=== PATIENT | female | born 1940 | race Caucasian/White ===

== ENCOUNTER → 2017-09-14 | Outpatient (CLI) | payer OTHER ==
[~2017-09-14] MED LIST: AMLO5TAB22 PO; FURO20 PO; GLUC500C56 PO; IRONCAP2 PO; LEFL20 PO; LOSA50TA PO; METO100T9 PO; OMEG1CAP53 PO; PRAV20 PO
--- NOTE | 2017-09-15 08:03 | RADRPT ---
EXAM DATE/TIME: 09/14/2017 12:10 [facility] COMPARISON : No previous studies available for comparison. INDICATIONS : Evaluate for possible RIGHT kidney biopsy and cryo-ablation HISTORY OF PRESENT ILLNESS: The patient is a 77-year-old who underwent MRI imaging dated 08/28/17. This demonstrated a 2.1 x 1.6 cm heterogeneously enhancing mass arising the upper pole of the right kidney. This lesion is concerni ng for renal cell carcinoma. IMAGING STUDIES: MRI dated 08/28/17 demonstrates a 2.1 x 1.6 cm enhancing mass in the upper pole the right kidney conc erning for malignancy. ASSESSMENT: Suspicious mass arising from the upper pole the right kidney. This lesion is a location which is amen able to cryoablation for treatment. PLAN: The patient will be scheduled for consultation and cryoablation of the right upper pole mass. TIME SPENT: 15 minutes. Salvador Swift MD on September 15, 2017 at 7:57 Board Certified Radiologist. This report was verified electronically.
== END ==
LOC: HRAD 11:38
PROVIDERS: ATTEND Internal Medicine Hematology & Oncology
DX: N28.89 Other specified disorders of kidney and ureter (principal)

== ENCOUNTER 2017-09-28 13:30 | Day surgery (SDC) | payer OTHER ==
--- NOTE | 2017-09-28 16:11 | RADRPT ---
EXAM DATE/TIME: 09/28/2017 00:00 [facility] COMPARISON : INDICATIONS : Cryoabaltion right kidney OBJECTIVE: Temperature: 98.5 Heart Rate: 66 Blood Pressure: 152/83 Respiratory: 18 Oximetry: 97 PNEUMONIA VACCINE: HISTORY OF PRESENT ILLNESS: The patient is a pleasant 69-year-old who has had several previous MRI scans to evaluate a mass along the posterior aspect of the right kidney. The most recent scan demonstrated increased in size of the mass. Now measures 1.7 x 2.2 cm. The lesion is suspicious for renal cell carcinoma. PAST MEDICAL HISTORY : Hypertension. Hypercholesterolemia. Carcinoma, breast. PAST SURGICAL HISTORY : Appendectomy. Gallbladder Knee surgery R Carpal Tunnel Tonsilectomy Radiation SOCIAL HISTORY : No alcohol use. Tobacco;none. Ampillicin Doyazosin 4 mg q.d. Hydrochlorothiazide 12.5 mg q.d. Leflunomide 20 mg q.d. Losartan Potassium 100 mg q.d. Metoprolol 50 mg q.d. Omeprazole 20 mg q.d. PHYSICAL EXAMINATION: Limited physical examination was performed. The patient is a mildly obese 77-year-old white female ot [facility] in good health. IMAGING STUDIES: The patient's MRI performed appendix imaging was reviewed. This confirmed an enhancing mass measuring approximately 2 cm arising from the posterior aspect of the right kidney. ASSESSMENT: The lesion is in an excellent location for cryoablation. PLAN: The patient will be scheduled for biopsy and treatment of the right renal mass. TIME SPENT: 30 minutes. Salvador Swift MD on September 28, 2017 at 16:06 Board Certified Radiologist. This report was verified electronically.
[2017-09-29] MEDS ORDERED: LEFL1TAB3 PO (08:34)
[2017-09-29] MEDS ORDERED: DOXA4TAB3 PO (08:34)
[2017-09-29] MEDS ORDERED: OMEP20TA93 PO (08:34)
[2017-09-29] MEDS ORDERED: LOSA100T PO (08:34)
[2017-09-29] MEDS ORDERED: METO1TAB9 PO (08:34)
[2017-09-29] MEDS ORDERED: HYDR12.57 PO (08:34)
== END 2017-09-28 15:10 | disposition home or self-care (01) ==
LOC: HROP 13:30 → HRIP 13:31 → HROP 15:10
PROVIDERS: ATTEND Internal Medicine Hematology & Oncology
DX: N28.89 Other specified disorders of kidney and ureter (principal); I10 Essential (primary) hypertension; E78.00 Pure hypercholesterolemia, unspecified; Z85.3 Personal history of malignant neoplasm of breast
CPT/HCPCS: 99213; G0463

== ENCOUNTER 2017-09-29 08:09 | Day surgery (SDC) | payer OTHER ==
[~2017-09-29] VITALS: Ht 152.4 cm; Wt 90.9 kg
[2017-09-29 08:27] VITALS: BP 174/101; PULSE 67; RESP 20; TEMP 97.8; O2SAT 97
[2017-09-29] MEDS ORDERED: LOSA100T PO (08:34)
[2017-09-29] MEDS ORDERED: METO1TAB9 PO (08:34)
[2017-09-29] MEDS ORDERED: HYDR12.57 PO (08:34)
[2017-09-29] MEDS ORDERED: LEFL1TAB3 PO (08:34)
[2017-09-29] MEDS ORDERED: DOXA4TAB3 PO (08:34)
[2017-09-29] MEDS ORDERED: OMEP20TA93 PO (08:34)
[2017-09-29] MEDS ORDERED: SODIUM CHLORID 0.9% 500 ML IV PRN (08:45)
[2017-09-29] MEDS ORDERED: LEVOFLOXACIN 500 MG PREMIX INJ 100 ML IV SCH (08:45)
[2017-09-29] MEDS ORDERED: LACTATED RINGER'S 1000 ML IV PRN (08:45)
[2017-09-29] MEDS ORDERED: SODIUM CHLOR 0.9% 1000 ML INJ 1,000 ML IV SCH (09:00)
[2017-09-29 09:08] LABS: AUTOMATED NEUTROPHIL # 2.8 TH/MM3 (1.8-7.7); BASOPHIL % 0.6 % (0.0-2.0); EOSINOPHIL # 0.1 TH/MM3 (0-0.4); EOSINOPHIL % 1.5 % (0.0-4.0); HEMATOCRIT 34.4 % (35.0-46.0); HEMO FLAGS DIFF FINAL; MEAN CELL VOLUME 92.1 FL (80.0-100.0); MEAN CORPUSCULAR HEMOGLOBIN 31.5 PG (27.0-34.0); MEAN CORPUSCULAR HGB CONC 34.2 % (32.0-36.0); MONO % 9.2 % (0.0-8.0); NEUT % 64.7 % (16.0-70.0); PLATELET COUNT 153 TH/MM3 (150-450); RED BLOOD COUNT 3.73 MIL/MM3 (4.00-5.30); RED CELL DISTRIBUTION WIDTH 14.3 % (11.6-17.2); WHITE BLOOD COUNT 4.3 TH/MM3 (4.0-11.0)
[2017-09-29 09:12] LABS: APTT (PATIENT) 26.5 SEC (24.3-30.1); PROTHROMBIN TIME - PATIENT 10.5 SEC (9.8-11.6)
[2017-09-29 09:19] LABS: BICARBONATE 23.6 MEQ/L (21.0-32.0); POTASSIUM 3.7 MEQ/L (3.5-5.1)
[2017-09-29] MEDS ORDERED: LIDOCAINE 1%/EPINEPHrine 1:100,000 SOLN 20 ML VIAL ONE (10:49)
--- NOTE | 2017-09-29 13:17 | PD.RAD ---
Post Procedure Progress Note Pre Procedure Diagnosis: (1) Renal mass, right Post Procedure Diagnosis: (1) Renal mass, right Procedure Date: Sep 29, 2017 Supervising Radiologist: Salvador Swift Estimated blood loss: 1cc Plan of Activity Patient to Unit: PACU Patient Condition: Good Additional Comments: Pt. post right renal mass cryoablation Pt tolerated the procedure well Full dictated report to follow See PACS Report for procedural detail/treatment Salvador Swift MD Sep 29, 2017 13:17
[2017-09-29] MEDS ORDERED: *ONDANSETRON 4 MG VIAL PERIprocedural Use ONLY ONE (14:41)
[2017-09-29 14:49] VITALS: BP 127/57; PULSE 65; RESP 18; TEMP 97.8; O2SAT 94
--- NOTE | 2017-09-29 15:15 | RADRPT ---
EXAM DATE/TIME: 09/29/2017 12:07 INDICATIONS : Right renal mass. Anesthesia and pain control was provided by the Anesthesia department. Prophylactic antibiotics were administered with appropriate pre-procedure timing. Vancomycin within 2 hrs of procedure, Ancef (or alternative) within 1 hr of procedure start. Intra-procedural antibiotics were given as prescribed above. DEVICE(S): 1.) Cryoablation probe 14 Gauge MEDICAL HISTORY : Gastroesophageal reflux disease. Pancreatitis. Carcinoma, breast. Hypertension. SURGICAL HISTORY : Appendectomy. Cholecystectomy. Hysterectomy. ENCOUNTER: Initial ACUITY: 1 day PAIN SCORE: 0/10 LOCATION: Right renal PROCEDURE : 1. CT guided cryoablation. Under sterile conditions and using aseptic technique with CT guidance the mass was localized and sati sfactory approach was taken to access the lesion. 50 cc of intravenous contrast was given to help loc anabela the mass. Using automated exposure control and adjustment of the mA and/or kV according to pat ient size, radiation dose was kept as low as reasonably achievable to obtain optimal diagnostic quali ty images. DICOM format image data is available electronically for review and comparison. A [employer] Cryoprobe was employed using percutaneous technique employing the prescribed probes. A freeze-thaw, freeze-thaw technique was employed and serial imaging demonstrated an ice ball encomp assing the entire lesion. Post procedure images demonstrate expected postoperative changes without e vidence of hematoma. CONCLUSION: Uncomplicated cryoablation as above. Salvador Swift MD on September 29, 2017 at 15:07 Board Certified Radiologist. This report was verified electronically.
--- NOTE | 2017-09-29 15:46 | RADRPT ---
EXAM DATE/TIME: 09/29/2017 12:07 [facility] COMPARISON: CT FACIAL BONES W/O CONTRAST, August 07, 2015, 15:02. INDICATIONS : Right renal mass. BIOPSY SITE: Right renal DEVICE(S): 1.) 18 gauge Temno core biopsy needle MEDICAL HISTORY : Gastroesophageal reflux disease. Pancreatitis. Carcinoma, breast. Hypertension. SURGICAL HISTORY : Appendectomy. Cholecystectomy. Hysterectomy. ENCOUNTER: Initial ACUITY: 1 day PAIN SCORE: 0/10 LOCATION: Right renal A total of one core specimen(s) were obtained and sent to the laboratory for pathologic evaluation. PROCEDURE: 1. CT guided renal biopsy. 2. Conscious sedation with continuous EKG and oximetry monitoring. 3. EKG and oximetry remained stable throughout the procedure. Prior to the procedure informed consent was obtained. Any appropriate prior imaging studies were rev iewed. Using automated exposure control and adjustment of the mA and/or kV according to patient size, radiat ion dose was kept as low as reasonably achievable to obtain optimal diagnostic quality images. DICOM format image data is available electronically for review and comparison. The site was prepped in a sterile fashion. Full sterile technique was used, including cap, mask, carina rile gloves and gown and a large sterile sheet. Hand hygiene and 2% chlorhexidine and/or betadine/al cohol prep was utilized per protocol for cutaneous antisepsis. The skin and subcutaneous tissues wer e infiltrated with local anesthetic solution. With CT guidance the previously identified target was localized. Biopsy was performed using the presc ribed needle as above. Adequate hemostasis was obtained with compression at the puncture site. Follow-up CT scan reveals no hemorrhage. The patient tolerated the procedure well and there were no complications. The patient was returned to the Radiology Outpatient Unit in stable condition. CONCLUSION: Uncomplicated CT guided biopsy of the patient's right renal mass. Salvador Swift MD on September 29, 2017 at 15:44 Board Certified Radiologist. This report was verified electronically.
[2017-09-29 16:03] VITALS: BP 139/60; PULSE 68; RESP 18; O2SAT 96
[2017-09-29] MEDS ORDERED: DO NOT ADM ANY ANTICOAGULANT DRUGS PRN (16:15)
[2017-09-29] MEDS ORDERED: PROMETHAZINE INJ 25 MG/ML VIAL IM ONE (16:15)
[2017-09-29 17:15] VITALS: BP 107/57; PULSE 76; RESP 18; O2SAT 97
--- NOTE | 2017-09-29 19:34 | EKG ---
Date Performed: 09/29/2017 Time Performed: 08:49:01 PTAGE: 77 years EKG: Sinus rhythm WITH atrial premature beat. LOW QRS VOLTAGE When compared to previous tracing, the atrial premature beat is New. ABNORMAL ECG PREVIOUS TRACING : 08/04/2006 10.33 DOCTOR: Baldev Rao Interpretating Date/Time 09/29/2017 19:32:35
== END 2017-09-29 17:45 | disposition home or self-care (01) ==
LOC: HROP 08:09 → HRIP 08:15 → HROP 17:45
PROVIDERS: ATTEND Internal Medicine Hematology & Oncology
DX: C64.1 Malignant neoplasm of right kidney, except renal pelvis (principal); K86.1 Other chronic pancreatitis; K21.9 Gastro-esophageal reflux disease without esophagitis; I10 Essential (primary) hypertension; Z85.3 Personal history of malignant neoplasm of breast; Z01.818 Encounter for other preprocedural examination; Z01.810 Encounter for preprocedural cardiovascular examination
CPT/HCPCS: 50200; 50593; 77012; 77013; 80048; 85025; 85610; 85730; 88305; 93005; C2618; J2405; J2550

== ENCOUNTER 2017-10-06 13:39 | Day surgery (SDC) | payer OTHER ==
[~2017-10-06 13:39] MED LIST changes: -AMLO5TAB22 PO; +DOXA4TAB3 PO; -FURO20 PO; -GLUC500C56 PO; +HYDR12.57 PO; -IRONCAP2 PO; +LEFL1TAB3 PO; -LEFL20 PO; +LOSA100T PO; -LOSA50TA PO; -METO100T9 PO; +METO1TAB9 PO; -OMEG1CAP53 PO; +OMEP20TA93 PO; -PRAV20 PO
[2017-10-06 14:04] VITALS: BP 151/76; PULSE 87; RESP 20; TEMP 98.3; O2SAT 99
--- NOTE | 2017-10-07 08:57 | RADRPT ---
EXAM DATE/TIME: 10/06/2017 14:01 [facility] COMPARISON : INDICATIONS : FOLLOW UP RENAL MASS CRYOABLATION OBJECTIVE: Temperature: 98.3 Heart Rate: 87 Blood Pressure: 151/76 Respiratory: 20 Oximetry: 99 HISTORY OF PRESENT ILLNESS: 77-year-old post right renal mass biopsy and cryoablation. Biopsy-proven clear cell renal cell carcin nila. PHYSICAL EXAMINATION: Patient alert and oriented in no acute distress IMAGING STUDIES: Procedural images were reviewed. Findings discussed with patient and her ASSESSMENT: Patient appears to be doing well post cryoablation and right renal biopsy. Patient had some questions about the efficacy of the procedure and have we note for certain that the tumor is completely ablate d. I assured her that there is no way to determine for certain date if the tumor is completely ablate d at this point but the initial images look favorable. I also discussed the followup imaging in 3-6 months. PLAN: Followup cross-sectional imaging in 3-6 months. TIME SPENT: 10 minutes Abhi Blunt MD on October 07, 2017 at 8:49 Board Certified Radiologist. This report was verified electronically.
== END 2017-10-06 15:00 | disposition home or self-care (01) ==
LOC: HROP 13:39 → HRIP 13:39 → HROP 15:00
PROVIDERS: ATTEND Radiology Body Imaging
DX: Z08 Encounter for follow-up examination after completed treatment for malignant neoplasm (principal); C64.9 Malignant neoplasm of unspecified kidney, except renal pelvis
CPT/HCPCS: 99212; G0463

== ENCOUNTER 2018-04-02 18:41 | Emergency (ER) | payer OTHER ==
[~2018-04-02] VITALS: Ht 152.4 cm; Wt 90.5 kg
[2018-04-02 18:54] VITALS: BP 194/86; PULSE 67; RESP 20; TEMP 97.6; O2SAT 99
--- NOTE | 2018-04-02 21:18 | PD ---
HPI Chief Complaint: GI Complaint Time Seen by Provider: 21:09 (Kajal Bower) Time Seen by Provider: 21:09 (Keyon Chatterjee DO) Travel History International Travel<30 days: No Contact w/Intl Traveler<30days: No Traveled to known affect area: No (Kajal Bower) History of Present Illness HPI 78-year-old female with history of hypertension, remote history of breast cancer , presents emergency department today for evaluation of nausea and vomiting throughout the day. Patient states she has been unable to keep anything down. She denies any significant abdominal pain. She reports no diarrhea. She has had no fever or chills. She has noticed a decrease in her urine output throughout the day because she states she is unable to keep anything down. Patient denies any hematemesis. She has history of cholecystectomy and appendectomy. Patient has no other symptoms to report at this time. 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) Cardiovascular Problems: No Diabetes: No Diminished Hearing: No Endocrine: No Gastrointestinal Disorders: Yes (loose stools) Genitourinary: No Hepatitis: No Hiatal Hernia: Yes (gerd) Hypertension: Yes Immune Disorder: No Medical other: Yes (10cm cyst on ovary) Musculoskeletal: Yes (back, knee ) Neurologic: Yes (headaches) Psychiatric: No Reproductive: Yes (breast cancer, hysterectomy) Respiratory: No Immunizations Current: Yes Thyroid Disease: No Tetanus Vaccination: > 5 Years Influenza Vaccination: Yes ?: Not (Kajal Bower) Past Surgical History Abdominal Surgery: Yes (cholectomy) AICD: No Appendectomy: Yes (1939) Cardiac Surgery: No Cholecystectomy: Yes (1969) Ear Surgery: No Endocrine Surgery: No Eye Surgery: No Genitourinary Surgery: No Gynecologic Surgery: Yes (hyst partial) Hysterectomy: Yes (partial) Joint Replacement: Yes (bilateral knee) Oral Surgery: No Pacemaker: No Thoracic Surgery: No Tonsillectomy: Yes (1939) Other Surgery: Yes (DEVIATED SEPTUM,rt kidney sx) (Kajal Bower) Social History Alcohol Use: No Tobacco Use: No Substance Use: No (Kajal Bower) Allergies-Medications (Allergen,Severity, Reaction): Coded Allergies: ampicillin (Unverified Allergy, Severe, HIVES, 09/29/17) Reported Meds & Prescriptions Reported Meds & Active Scripts Active Reported Omeprazole 20 Mg Tab 20 Mg PO DAILY Metoprolol Succinate ER 24 HR (Metoprolol Succinate) 50 Mg Tab 50 Mg PO DAILY Losartan (Losartan Potassium) 100 Mg Tab 100 Mg PO DAILY Leflunomide 20 Mg Tab 20 Mg PO DAILY Hydrochlorothiazide 12.5 Mg Cap 12.5 Mg PO DAILY Doxazosin (Doxazosin Mesylate) 4 Mg Tab 4 Mg PO DAILYHS (Keyon Chatterjee DO) Review of Systems Except as stated in HPI: all other systems reviewed are Neg (Kajal Bower) Physical Exam Narrative GENERAL: Well-nourished female patient, appears without distress. SKIN: Focused skin assessment warm/dry. HEAD: Atraumatic. Normocephalic. EYES: Pupils equal and round. No scleral icterus. No injection or drainage. ENT: No nasal bleeding or discharge. Mucous membranes pink and moist. NECK: Trachea midline. No JVD. CARDIOVASCULAR: Regular rate and rhythm. RESPIRATORY: No accessory muscle use. Clear to auscultation. Breath sounds equal bilaterally. GASTROINTESTINAL: Abdomen rotund, soft, nontender to palpation. No guarding. No rebound tenderness. MUSCULOSKELETAL: No obvious deformities. No clubbing. No cyanosis. No edema. NEUROLOGICAL: Awake and alert. No obvious cranial nerve deficits. Motor grossly within normal limits. Normal speech. PSYCHIATRIC: Appropriate mood and affect; insight and judgment normal. (Kajal Bower) Data Data Last Documented VS Vital Signs Date Time Temp Pulse Resp B/P (MAP) Pulse Ox O2 Delivery O2 Flow Rate FiO2 04/02/18 22:28 56 20 186/80 (115) 97 Room Air 04/02/18 18:54 97.6 (Keyon Chatterjee ) Orders Orders Complete Blood Count With Diff (04/02/18 21:16) Comprehensive Metabolic Panel (04/02/18 21:16) Lipase (04/02/18 21:16) Prothrombin Time / Inr (Pt) (04/02/18 21:16) Act Partial Throm Time (Ptt) (04/02/18 21:16) Urinalysis - C+S If Indicated (04/02/18 21:16) Iv Access Insert/Monitor (04/02/18 21:16) Ecg Monitoring (04/02/18 21:16) Oximetry (04/02/18 21:16) Sodium Chloride 0.9% Flush (Ns Flush) (04/02/18 21:30) Chest, Single Ap (04/02/18 21:16) Prochlorperazine Inj (Compazine Inj) (04/02/18 21:30) Diphenhydramine Inj (Benadryl Inj) (04/02/18 21:30) Sodium Chlor 0.9% 1000 Ml Inj (Ns 1000 M (04/02/18 21:30) Ed Discharge Order (04/03/18 00:48) (Keyon Chatterjee DO) Labs Laboratory Tests Test 04/02/18 22:01 04/02/18 22:58 White Blood Count 5.9 TH/MM3 Red Blood Count 4.64 MIL/MM3 Hemoglobin 14.6 GM/DL Hematocrit 42.1 % Mean Corpuscular Volume 90.8 FL Mean Corpuscular Hemoglobin 31.4 PG Mean Corpuscular Hemoglobin Concent 34.6 % Red Cell Distribution Width 14.5 % Platelet Count 175 TH/MM3 Mean Platelet Volume 9.6 FL Neutrophils (%) (Auto) 84.7 % Lymphocytes (%) (Auto) 10.6 % Monocytes (%) (Auto) 4.2 % Eosinophils (%) (Auto) 0.2 % Basophils (%) (Auto) 0.3 % Neutrophils # (Auto) 5.0 TH/MM3 Lymphocytes # (Auto) 0.6 TH/MM3 Monocytes # (Auto) 0.2 TH/MM3 Eosinophils # (Auto) 0.0 TH/MM3 Basophils # (Auto) 0.0 TH/MM3 CBC Comment DIFF FINAL Differential Comment Prothrombin Time 10.3 SEC Prothromb Time International Ratio 1.0 RATIO Activated Partial Thromboplast Time 27.5 SEC Blood Urea Nitrogen 16 MG/DL Creatinine 0.89 MG/DL Random Glucose 124 MG/DL Total Protein 8.8 GM/DL Albumin 4.2 GM/DL Calcium Level 9.5 MG/DL Alkaline Phosphatase 111 U/L Aspartate Amino Transf (AST/SGOT) 21 U/L Alanine Aminotransferase (ALT/SGPT) 39 U/L Total Bilirubin 0.7 MG/DL Sodium Level 138 MEQ/L Potassium Level 3.5 MEQ/L Chloride Level 103 MEQ/L Carbon Dioxide Level 24.1 MEQ/L Anion Gap 11 MEQ/L Estimat Glomerular Filtration Rate 61 ML/MIN Lipase 84 U/L Urine Color YELLOW Urine Turbidity CLOUDY Urine pH 5.0 Urine Specific [place] 1.023 Urine Protein NEG mg/dL Urine Glucose (UA) NEG mg/dL Urine Ketones NEG mg/dL Urine Occult Blood NEG Urine Nitrite NEG Urine Bilirubin NEG Urine Urobilinogen LESS THAN 2 mg/dL Urine Leukocyte Esterase NEG Urine RBC LESS THAN 1 /hpf Urine WBC 1 /hpf Urine Squamous Epithelial Cells 3 /hpf Urine Bacteria RARE /hpf Urine Mucus MOD /lpf Microscopic Urinalysis Comment CULT NOT INDICATED (Keyon Chatterjee DO) [facility] Medical Decision Making Medical Screen Exam Complete: Yes Emergency Medical Condition: Yes Medical Record Reviewed: Yes Differential Diagnosis Gastritis versus gastroenteritis versus electrolyte abnormality versus pancreatitis Narrative Course 78-year-old female presents to emergency department for evaluation of nausea and vomiting throughout the day. Patient appears nontoxic. Her vital signs are stable. Laboratory Tests Test 04/02/18 22:01 White Blood Count 5.9 TH/MM3 Red Blood Count 4.64 MIL/MM3 Hemoglobin 14.6 GM/DL Hematocrit 42.1 % Mean Corpuscular Volume 90.8 FL Mean Corpuscular Hemoglobin 31.4 PG Mean Corpuscular Hemoglobin Concent 34.6 % Red Cell Distribution Width 14.5 % Platelet Count 175 TH/MM3 Mean Platelet Volume 9.6 FL Neutrophils (%) (Auto) 84.7 % Lymphocytes (%) (Auto) 10.6 % Monocytes (%) (Auto) 4.2 % Eosinophils (%) (Auto) 0.2 % Basophils (%) (Auto) 0.3 % Neutrophils # (Auto) 5.0 TH/MM3 Lymphocytes # (Auto) 0.6 TH/MM3 Monocytes # (Auto) 0.2 TH/MM3 Eosinophils # (Auto) 0.0 TH/MM3 Basophils # (Auto) 0.0 TH/MM3 CBC Comment DIFF FINAL Differential Comment Can panel is pending. Patient is signed out to my attending physician. He will assume care and disposition the patient as he sees fit. (Kajal Bower) Diagnosis Primary Impression: Nausea & vomiting Qualified Codes: R11.2 - Nausea with vomiting, unspecified Med/Other Pt SpecificInfo: Prescription(s) given (Keyon Chatterjee DO) Scripts Ondansetron Odt (Zofran Odt) 4 Mg Tab 4 MG SL Q8HR Y for Nausea/Vomiting, #12 TAB 0 Refills Prov: Keyon Chatterjee DO 04/03/18 Disposition: 01 DISCHARGE HOME Condition: Kajal Miranda Apr 02, 2018 21:18 Keyon Chatterjee DO Apr 03, 2018 00:52
[2018-04-02] MEDS ORDERED: diphenhydrAMINE HCL 50 MG/ML VIAL IV PUSH ONE (21:30)
[2018-04-02] MEDS ORDERED: SODIUM CHLOR 0.9% 1000 ML INJ 1,000 ML IV ONE (21:30)
[2018-04-02] MEDS ORDERED: PROCHLORPERAZINE INJ 10 MG/2 ML VIAL IV PUSH ONE (21:30)
[2018-04-02] MEDS ORDERED: SODIUM CHLORIDE 0.9% FLUSH 10 ML FLUSH IV FLUSH PRN (21:30)
[2018-04-02 22:03] VITALS: O2SAT 97
--- NOTE | 2018-04-02 22:18 | RADRPT ---
EXAM DATE: 04/02/2018 9:52 PM EDT AGE/SEX: 78 years / Female INDICATIONS: Chest discomfort, vomiting starting today CLINICAL DATA: This is the patient's initial encounter. Patient reports that signs and symptoms have been present for 1 day and indicates a pain score of 0/10. MEDICAL/SURGICAL HISTORY: None. None. COMPARISON: No prior exams available for comparison. FINDINGS: A single AP view of the chest demonstrates the lungs to be symmetrically aerated without evidence of mass, infiltrate or effusion. The cardiomediastinal contours are unremarkable. Osseous structures a re intact. CONCLUSION: No acute findings. Electronically signed by: Jarett Dumont MD 04/02/2018 10:16 PM EDT
[2018-04-02 22:28] VITALS: BP 186/80; PULSE 56; RESP 20; O2SAT 97
[2018-04-02 22:33] LABS: BASOPHIL % 0.3 % (0.0-2.0); EOSINOPHIL % 0.2 % (0.0-4.0); HEMATOCRIT 42.1 % (35.0-46.0); HEMOGLOBIN 14.6 GM/DL (11.6-15.3); LYMPH % 10.6 % (9.0-44.0); LYMPHOCYTE # 0.6 TH/MM3 (1.0-4.8); MEAN CELL VOLUME 90.8 FL (80.0-100.0); MEAN CORPUSCULAR HEMOGLOBIN 31.4 PG (27.0-34.0); MEAN CORPUSCULAR HGB CONC 34.6 % (32.0-36.0); MEAN PLATELET VOLUME 9.6 FL (7.0-11.0); MONO % 4.2 % (0.0-8.0); MONOCYTE # 0.2 TH/MM3 (0-0.9); NEUT % 84.7 % (16.0-70.0); PLATELET COUNT 175 TH/MM3 (150-450); RED BLOOD COUNT 4.64 MIL/MM3 (4.00-5.30); RED CELL DISTRIBUTION WIDTH 14.5 % (11.6-17.2); WHITE BLOOD COUNT 5.9 TH/MM3 (4.0-11.0)
[2018-04-02 22:49] LABS: ALBUMIN 4.2 GM/DL (3.4-5.0); AST (GOT) 21 U/L (15-37); BICARBONATE 24.1 MEQ/L (21.0-32.0); BLOOD UREA NITROGEN 16 MG/DL (7-18); CALCIUM 9.5 MG/DL (8.5-10.1); CHLORIDE 103 MEQ/L (98-107); CREATININE 0.89 MG/DL (0.50-1.00); GLOMERULAR FILTRATION RATE 61 ML/MIN (>89); GLUCOSE,RANDOM 124 MG/DL (74-106); SODIUM (NA) 138 MEQ/L (136-145)
[2018-04-02 22:50] LABS: ALT (GPT) 39 U/L (10-53)
[2018-04-02 22:52] LABS: ALKALINE PHOSPHATASE 111 U/L (45-117); TOTAL BILIRUBIN ADULT 0.7 MG/DL (0.2-1.0); TOTAL PROTEIN 8.8 GM/DL (6.4-8.2)
[2018-04-02 23:14] LABS: PROTHROMBIN TIME - PATIENT 10.3 SEC (9.8-11.6)
[2018-04-02 23:18] LABS: BACTERIA, URINE RARE /hpf; BILIRUBIN, URINE NEG (NEG); BLOOD, URINE NEG (NEG); GLUCOSE,URINE NEG (NEG); KETONE, URINE NEG (NEG); MUCUS URINE MOD /lpf (OCC); NITRITE,URINE NEG (NEG); SQUAMOUS EPITHELIAL CELL URINE 3 /hpf (0-5); URINE COLOR YELLOW (YELLW/STRAW); URINE LEUKOCYTE ESTERASE NEG (NEG)
[2018-04-03] MEDS ORDERED: ZOFR4TAB3 SL (00:52)
== END 2018-04-03 01:05 | disposition home or self-care (01) ==
LOC: NEPC 18:41
DX: R11.2 Nausea with vomiting, unspecified (principal); R07.89 Other chest pain; K21.9 Gastro-esophageal reflux disease without esophagitis; I10 Essential (primary) hypertension; Z85.3 Personal history of malignant neoplasm of breast; Z90.49 Acquired absence of other specified parts of digestive tract
CPT/HCPCS: 71045; 80053; 81001; 83690; 85025; 85610; 85730; 96361; 96374; 99284; J0780; J1200; J7030

== ENCOUNTER 2018-05-03 08:28 | Observation (INO) ==
[2018-05-03] MEDS ORDERED: Metoprolol Tartrate 25 MG Tablet PO SCH (09:00)
[2018-05-03] MEDS ORDERED: Chlorhexidine Gluconate 2% 1 Pack (2 Cloths) TOPICAL SCH (09:00)
[2018-05-03] MEDS ORDERED: Sodium Chlor 0.9% Inj 500 ML IV.SIG SCH (09:00)
[2018-05-03] MEDS ORDERED: Levofloxacin 500 mg Premix Inj 500 MG/100 ML PIGGYBACK IV.SIG SCH (10:00)
[2018-05-03] MEDS ORDERED: Heparin - SQ 10,000 UNITS/ML Vial SQ ONE (10:34)
[2018-05-03] MEDS ORDERED: Famotidine PF Inj 20 MG/2 ML Vial ONE (11:34)
[2018-05-03] MEDS ORDERED: Lidocaine 1%/Epinephrine 1:100,000 Inj 30 ML Vial ONE (11:39)
[2018-05-03] MEDS ORDERED: Labetalol HCl Inj 100 MG/20 ML Vial IV.CONT ONE (13:57)
[2018-05-03] MEDS ORDERED: Neostigmine Inj 5 MG/5 ML Syringe IV.PUSH ONE (13:57)
[2018-05-03] MEDS ORDERED: Normosol-R pH 7.4 Inj 1,000 ML IV.CONT ONE (13:57)
[2018-05-03] MEDS ORDERED: Lidocaine PF 1% Inj 5 ML Syringe INFILTRATN ONE (13:57)
[2018-05-03] MEDS ORDERED: Glycopyrrolate Inj 1 MG/5 ML Syringe IV.PUSH ONE (13:57)
[2018-05-03] MEDS ORDERED: LORazepam 0.5 MG Tablet PO PRN (15:50)
[2018-05-03] MEDS ORDERED: KCL 20 mEq/D5W/NaCl 0.45% Inj 1,000 ML ONE (16:01)
[2018-05-03] MEDS ORDERED: fentaNYL Citrate Inj 100 MCG/2 ML Ampul ONE (16:20)
[2018-05-03] MEDS ORDERED: Morphine Inj 4 MG/ML Vial ONE (16:20)
[2018-05-03] MEDS: KCL 20 mEq/D5W/NaCl 0.45% Inj 1,000 ML IV.CONT SCH (16:28)
[2018-05-03] MEDS: Ketorolac Inj 30 MG/ML (IVP) Vial IV.PUSH SCH (18:29)
[2018-05-03] MEDS ORDERED: Doxazosin 4 MG Tablet PO SCH (21:00)
[2018-05-04] MEDS: Ketorolac Inj 30 MG/ML (IVP) Vial IV.PUSH SCH ×3 (00:56→12:09)
[2018-05-04] MEDS: KCL 20 mEq/D5W/NaCl 0.45% Inj 1,000 ML IV.CONT SCH (03:52)
[2018-05-04 06:18] LABS: Baso % (Auto) 0.2 % (0.0-2.0); Hematocrit 33.5 % (35.0-46.0); Hemoglobin 11.4 gm/dL (11.6-15.3); Lymph # (Auto) 0.4 th/mm3 (1.0-4.8); Mean Corpuscular HGB Conc 34.1 % (32.0-36.0); Mean Corpuscular Hemoglobin 31.4 pg (27.0-34.0); Mean Corpuscular Volume 92.2 fL (80.0-100.0); Mean Platelet Volume 9.7 fL (7.0-11.0); Mono # (Auto) 0.4 th/mm3 (0.0-0.9); Neut # (Auto) 6.5 th/mm3 (1.8-7.7); Neut % (Auto) 87.8 % (16.0-70.0); Platelet Count 147 th/mm3 (150-450); Red Blood Count 3.63 mil/mm3 (4.00-5.30); Red Cell Distribution Width 14.2 % (11.6-17.2); White Blood Count 7.4 th/mm3 (4.0-11.0)
[2018-05-04 06:43] LABS: Calcium 7.9 mg/dL (8.5-10.1); Carbon Dioxide 23.7 meq/L (21.0-32.0); Potassium 3.9 meq/L (3.5-5.1)
--- NOTE | 2018-05-04 07:16 | MD ---
cc: Martina Albrecht MD,Edwin Vasquez,Shruthi Beach MD DATE OF DISCHARGE: PROCEDURE PERFORMED: On 05/03/2018, robotic-assisted laparoscopic resection of pelvic mass (left salpingo-oophorectomy), extensive lysis of adhesions. HOSPITAL COURSE: She did well in her early postoperative period, remained hemodynamically stable, tolerating oral intake. Lerma catheter removed, pending voiding. Ins and outs 2620/1150. H and H 11.4/33, potassium 3.9, creatinine 0.86. PHYSICAL EXAMINATION: VITAL SIGNS: Afebrile, vital signs are stable. GENERAL: Alert and oriented x 3. LUNGS: Clear. Mild basilar rales. CARDIOVASCULAR: Regular rate and rhythm. ABDOMEN: Soft. Incision is clean and dry. EXTREMITIES: Nontender. ASSESSMENT: Postoperative day #1, doing well in her early postoperative period. Findings at the time of surgery, steps taken and preliminary pathology are reviewed. Activities and restrictions discussed. Questions were asked and answered. She expressed good understanding and agreed. PLAN: Anticipate she will meet criteria for discharge to home. She is to contact our office to schedule followup within approximately 2 weeks. She is to resume prior medication. She will have a prescription for Percocet for postop pain. MD MIKE Gomez/ESTEBAN , 07:04 AM , 07:15 AM
[2018-05-04] MEDS ORDERED: LEFLUNOMIDE 20 MG PO SCH (09:00)
[2018-05-04] MEDS ORDERED: hydroCHLOROthiazide 25 MG Tablet PO SCH (09:00)
[2018-05-04] MEDS ORDERED: Pantoprazole Sodium 20 MG DR Tablet PO SCH (09:00)
--- NOTE | 2018-05-04 09:22 | MP ---
cc: Martina Albrecht MD, Rizalina MD Schneider,Shruthi ONEAL DATE OF OPERATION: 05/03/2018 DATE OF PROCEDURE: 05/03/2018. PREOPERATIVE DIAGNOSIS: Pelvic mass. POSTOPERATIVE DIAGNOSES: 1. Left ovarian mass. 2. Extensive pelvic and intraperitoneal adhesions. PROCEDURE PERFORMED: Robotic-assisted laparoscopic resection of pelvic mass (left salpingo-oophorectomy), extensive lysis of adhesions. SURGEON: Martina Albrecht MD LEATHER BELT LOOP CUTTER: Karena compounding assistant. ANESTHESIA: General endotracheal anesthesia. ESTIMATED BLOOD LOSS: 250 mL IV FLUIDS: 1500 mL URINE OUTPUT: 600 mL HISTORY: A 78-year-old female found on exam and imaging to have a 10 cm pelvic mass, predominantly cystic but with a peripheral solid area. She has some pelvic pain and pressure, some associated bowel and bladder symptoms. The mass had been previously detected on prior imaging, but has increased in size since last imaging. She was counseled regarding surgical options. She was in favor of surgical resection. She is seen again in the preop holding area where the findings and plan of care are again discussed. Questions were asked and answered. She expressed good understanding and was in favor of surgical removal. By history, she has had a prior hysterectomy and one of her tubes and ovaries are removed. The working premises that this mass is likely arising from the residual ovary. By history, she has had prior surgeries and inflammatory conditions and as such extensive adhesions are anticipated. FINDINGS: The mass was arising from and replacing the left ovary. It was initially not visible as the adhesions precluded access to the pelvis. There were bands of adhesions between the omentum and the anterior abdominal wall. The pericolonic fat and mesentery were adherent to the right anterior lateral abdominal wall. She has adhesions in the right upper quadrant consistent with her prior open cholecystectomy as well as the lower adhesions consistent with appendectomy. The mass was partially retroperitonealized, partially behind the colon and there is extensive diverticulum with inflammatory changes suggestive of previous diverticulitis causing adhesions in the pelvis. The uterus and cervix appeared to be surgically absent. The right tube and ovary appeared to be surgically absent. Frozen section analysis of the mass shows it to be benign. There is a fatty component suggesting it may be hormonally active, but there is no malignant cells or malignant changes detected with further details pending final histopathologic analysis. Within the peritoneal cavity, the liver, diaphragm edges are smooth. The omentum grossly appears normal. The large and small bowel and adjacent mesentery are all without any evidence of peritoneal implants. There is no overt appreciable adenopathy. STATEMENT OF COMPLEXITY/MODIFIER: At least an additional 60 minutes were spent lysing adhesions to gain safe access into the pelvis to reestablish and identify anatomical structures and in order to complete surgical objectives due to extensive adhesions, modifier should be applied accordingly. DESCRIPTION OF PROCEDURE: She was taken to the operating room and placed in dorsal lithotomy position, after general endotracheal anesthesia was administered. A timeout was undertaken. She was identified by site recognition and hospital ID bracelet and the proposed procedure was reviewed and confirmed. She was carefully positioned in padded Sanchez stirrups. Her arms were padded and secured to the sides with eggcrate padding and tape and across chest, over the shoulder fashion. All sites noted to be properly aligned with no malalignment or pressure points. She was prepped and draped in sterile fashion. Lerma catheter placed in the bladder and orogastric tube placed in the stomach on suction. Change to sterile gloves was undertaken with completed draping in anticipation of laparoscopy. With manual elevation of the abdominal wall and under direct laparoscopic visualization, a 5 mm cannula was introduced into the peritoneal cavity. Carbon dioxide gas was insufflated and an atraumatic entry was confirmed. Under laparoscopic visualization, an 8 mm cannula was placed in the right upper quadrant. She was placed in Trendelenburg position. Peritoneal washings were obtained for cytology. The anatomy was surveyed with findings as described above. The adhesions initially precluded visibility of the pelvis and the mass. Adhesions were taken down from the anterior abdominal wall and the right anterior lateral abdominal wall and some adhesions were taken down from the distal omentum and loops of small bowel to help mobilize above the pelvis. There was short mesentery and the bowel was not very mobile. The colon was adherent, as described above, thickened and with multiple diverticula, but without active diverticulitis. A 12 mm cannula was placed in the midline above the umbilicus, 8 mm cannula placed in the left lower quadrant and the original 5 mm exchanged for an 8 mm cannula. She was placed in steep Trendelenburg position. Three Ray-Lacie sponges were placed around the root of the small bowel mesentery to try with the assistant operations manager holding the bowel in place. The edge of the mass, the lateral component was smooth-walled and cystic. The rest of it was still either retroperitonealized or retrocolic. The robotic system was brought into the operative field and attached in the usual fashion. Monopolar scissors, fenestrated bipolar forceps and ProGrasp manipulators were placed in arms #1, 2, and 3 respectively and I took my place at the surgeon's console. Retroperitoneal dissection was carried out along the left pelvic sidewall and adhesions were taken down. The residual right round ligament was identified and cauterized. The colon was freed from its attachments against the left pelvic sidewalls so it could be mobilized medially. Pericolonic epiploica and mesentery were adherent to the mass and they were taken down with sharp dissection to help further try to mobilize the mass and some posterior dissection was carried out to help identify the borders and extent of the mass. Further retroperitoneal dissection allowed identification of the infundibulopelvic ligament and a window was created in the peritoneum just below the infundibulopelvic ligament, immediately adjacent to the ovary. The infundibulopelvic ligament was elevated. The peritoneum was opened, thereby retracting the ureter and additional adhesions posteriorly. The infundibulopelvic ligament was isolated and thoroughly cauterized and transected. Dissection was continued to free the adhesions until the residual utero-ovarian ligament was identified, which was quite vascular, more so than usual. It was isolated. There was a little bit of bleeding encountered here, but after it was isolated, it was thoroughly cauterized and transected. Sharp and blunt dissection then continued laterally and posteriorly circumferentially to free the adjacent structures and to free the mass from all of its surrounding structures and, as adhesions were continually lysed, eventually, the mass was able to be resected with the capsule remaining intact. The pelvis was now thoroughly irrigated. Small bleeders rendered hemostatic with bipolar cautery. Surgicel hemostatic agent was placed across the dissection bed. All sites noted to be hemostatic, intact peristalsis of the left ureter. The right tube and ovary were again confirmed to be surgically absent, the uterus and cervix surgically absent. No other abnormalities detected. It was felt that all reasonable surgical objectives had been completed. The robotic instruments were removed. The robotic system was disengaged from the operative field. I reentered the bedside under sterile condition. Each of the 3 Ray-Lacie sponges were grasped and removed individually. Each were inspected and noted to be removed in their entirety. A 15 cm EndoCatch bag was introduced after the 12 mm fascial incision was extended slightly with sharp dissection. The mass was captured in the EndoCatch bag and brought to the abdominal wall where the cystic component was drained. The size was reduced and the mass was removed contained within the bag. The mass was sent for frozen section analysis, which eventually came back showing benign findings, no evidence of malignancy. Inspection confirmed there were no remaining foreign objects in the peritoneal cavity. Preliminary counts were correct. Sites were hemostatic and attention was directed toward closing. The 12 mm fascial defect was closed with interrupted 0 Vicryl sutures using a fascia closure needle pass apparatus. They were tied securely which rendered the fascia completely airtight and hemostatic. The remaining cannulas were withdrawn. Carbon dioxide gas was removed. 3-0 Vicryl subcutaneous, 3-0 Vicryl subcuticular and Steri-Strips to close these incisions. Pelvic exam confirmed there were no remaining foreign objects in the vagina. Final counts were correct. She was returned to dorsal supine position and was pending reversal of anesthesia, when I left the operating room to precede her to the postanesthesia care unit. MD MIKE Gomez/MAGDA , 08:33 AM , 09:21 AM
[2018-05-04 11:14] VITALS: RESP 18; O2SAT 96
[2018-05-04 13:15] VITALS: BP 128/82; PULSE 70; TEMP 98.5
== END 2018-05-04 13:58 | disposition home or self-care (01) ==
LOC: HSDC 08:28 → HCIN 08:28 → HSDI 08:28 → HCIN 19:08
PROVIDERS: ADMIT Obstetrics & Gynecology Gynecologic Oncology; ATTEND Obstetrics & Gynecology Gynecologic Oncology